=== PATIENT | female | born 1960 | race Caucasian/White ===

== ENCOUNTER 2018-08-20 19:46 | Emergency (ER) | payer SELFPAY ==
--- NOTE | 2018-08-20 22:30 | ER Document Report ---
ED Medical Screen (RME) - General Chief Complaint: Leg Pain Stated Complaint: THIGH PAIN Time Seen by Provider: 08/20/18 22:19 Primary Care Provider: BLANCA STYLES PA-C [Primary Care Provider] - Follow up as needed Notes: 58-year-old female with 2 complaints. Main complaint is 2 separate episodes where she became diaphoretic, dizzy, and almost passed out. She denies chest pain, shortness of breath, nausea or vomiting. She states that 1 of the episodes happened right after she had sharp pain in her left leg/hip area. She has been getting this recently, it is specifically over the front of the left thigh and after a very sharp pain she will feel numbness over the area temporarily. Lower extremity is normal. No swelling. No history of blood clot. Treated with metformin and Synthroid. TRAVEL OUTSIDE OF THE [place] IN LAST 30 DAYS: No - Related Data Allergies/Adverse Reactions: No Known Allergies Allergy (Verified 03/16/14 16:45) Past Medical History - Past Medical History Cardiac Medical History: Denies: Hx Coronary Artery Disease, Hx Heart Attack, Hx Hypertension Pulmonary Medical History: Reports: Hx Pneumonia - "walking" at age 25 Denies: Hx Asthma, Hx Bronchitis, Hx COPD Neurological Medical History: Denies: Hx Cerebrovascular Accident, Hx Seizures Musculoskeltal Medical History: Reports Hx Arthritis - Knees, hips Past Surgical History: Reports: Hx Section - Immunizations Hx Diphtheria, Pertussis, Tetanus Vaccination: Yes Physical Exam - Cardiovascular Rhythm: Regular. No: Tachycardia Heart sounds: Normal auscultation, S1 appreciated, S2 appreciated Doctor's Discharge - Discharge Referrals: BLANCA STYLES PA-C [Primary Care Provider] - Follow up as needed
[2018-08-20 22:50] LABS: ABSOLUTE BASOPHILS # (AUTO) 0.1 10^3/uL (0.0-0.2); ABSOLUTE EOSINOPHILS # (AUTO) 0.1 10^3/uL (0.0-0.6); ABSOLUTE LYMPHOCYTES (AUTO) 2.4 10^3/uL (0.5-4.7); ABSOLUTE MONOCYTES (AUTO) 0.5 10^3/uL (0.1-1.4); ABSOLUTE NEUT (AUTO) 8.9 10^3/uL (1.7-8.2); BASOPHILS % (AUTO) 0.8 % (0-2); EOSINOPHILS % (AUTO) 0.5 % (0-6); HEMATOCRIT 45.5 % (36.0-47.0); HEMOGLOBIN 15.7 g/dL (12.0-15.5); LYMPHOCYTES % (AUTO) 20.3 % (13-45); MEAN CORPUSCULAR HEMOGLOBIN 31.1 pg (27.0-33.4); MEAN CORPUSCULAR HGB CONC 34.5 g/dL (32.0-36.0); MEAN CORPUSCULAR VOLUME 90 fl (80-97); MONOCYTES % (AUTO) 4.6 % (3-13); PLATELET COUNT 277 10^3/uL (150-450); RED BLOOD COUNT 5.04 10^6/uL (3.72-5.28); RED CELL DISTRIBUTION WIDTH 13.9 % (11.5-14.0); SEGMENTED NEUTROPHILS % (AUTO) 73.8 % (42-78); TOTAL CELLS COUNTED % (AUTO) 100 %
[2018-08-20 22:57] LABS: APPEARANCE,URINE CLOUDY; BILIRUBIN,URINE SMALL (NEGATIVE); GLUCOSE, URINE NEGATIVE (NEGATIVE); KETONES,URINE TRACE mg/dL (NEGATIVE); LEUKOCYTE ESTERASE,URINE NEGATIVE (NEGATIVE); NITRITE,URINE NEGATIVE (NEGATIVE); PROTEIN,URINE 30 mg/dL (NEGATIVE); URINE SPECIFIC GRAVITY 1.024
[2018-08-20 22:58] LABS: COLOR,URINE DARK YELLOW
--- NOTE | 2018-08-20 23:01 | RADIOLOGY REPORT (SQ) ---
EXAM DESCRIPTION: XR CHEST 1 VIEW COMPLETED DATE/TME: 08/20/2018 22:27 CLINICAL HISTORY: 58 years, Female, dizziness, near syncope COMPARISON: 05/10/2014 chest NUMBER OF VIEWS: 1 TECHNIQUE: Portable chest LIMITATIONS: None. FINDINGS: Heart size is normal. Osteopenia. Lungs are clear. No pneumothorax IMPRESSION: No acute cardiopulmonary process copyright 2010 [employer]- All Rights Reserved
--- NOTE | 2018-08-20 23:02 | RADIOLOGY REPORT (SQ) ---
EXAM DESCRIPTION: XR HIP 2 OR MORE VIEWS COMPLETED DATE/TME: 08/20/2018 22:27 CLINICAL HISTORY: 58 years, Female, sharp pain COMPARISON: None. NUMBER OF VIEWS: 3 TECHNIQUE: AP pelvis and two-view left hip LIMITATIONS: None. FINDINGS: Osteopenia. Negative for acute fracture or dislocation. Mild degenerative change of the hips bilaterally. Soft tissues are unremarkable IMPRESSION: Osteopenia with mild degenerative change copyright 2010 [employer]- All Rights Reserved
[2018-08-20 23:10] LABS: ANION GAP 12 (5-19); BLOOD UREA NITROGEN 23 mg/dL (7-20); CARBON DIOXIDE 29 mmol/L (22-30); CHLORIDE 102 mmol/L (98-107); CREATINE KINASE 378 U/L (30-135); GLUCOSE 122 mg/dL (75-110); POTASSIUM 4.4 mmol/L (3.6-5.0); SODIUM 143.4 mmol/L (137-145)
--- NOTE | 2018-08-21 02:37 | ER Document Report ---
ED General - General Chief Complaint: Leg Pain Stated Complaint: THIGH PAIN Time Seen by Provider: 08/20/18 22:19 Primary Care Provider: BLANCA STYLES PA-C [Primary Care Provider] - 08/23/18 Notes: Patient is a 58-year-old female who presents with complaint of 2 separate episodes of sudden onset of a sharp pain in her lateral thigh that then shot down her leg numbness associated with it as well. Both episodes lasted 1-2 minutes. She says when she gets these episodes she then becomes diaphoretic feels lightheaded. She does not have chest pain. She does not pass out. She says that she is also noticed that she is just having pain in her thigh when she walks. She says that she is only had the 2 episodes of the severe. That again originates in the lateral thigh. No edema to the leg. No history of PE DVT. No redness or swelling to the leg. She says she has gained 30 pounds due to being off her thyroid medication was recently placed back on her thyroid medication which she says has helped. She denies any pain in her back. No fevers. No associated weakness. No other complaints at this time. TRAVEL OUTSIDE OF THE [place] IN LAST 30 DAYS: No - Related Data Allergies/Adverse Reactions: No Known Allergies Allergy (Verified 08/20/18 22:37) Past Medical History - Social History Smoking Status: Never Smoker Frequency of alcohol use: None Drug Abuse: None Family History: Reviewed & Not Pertinent Patient has suicidal ideation: No Patient has homicidal ideation: No - Past Medical History Cardiac Medical History: Denies: Hx Coronary Artery Disease, Hx Heart Attack, Hx Hypertension Pulmonary Medical History: Reports: Hx Pneumonia - "walking" at age 25 Denies: Hx Asthma, Hx Bronchitis, Hx COPD Neurological Medical History: Denies: Hx Cerebrovascular Accident, Hx Seizures Renal/ Medical History: Denies: Hx Peritoneal Dialysis Musculoskeletal Medical History: Reports Hx Arthritis - Knees, hips Past Surgical History: Reports: Hx Section - Immunizations Hx Diphtheria, Pertussis, Tetanus Vaccination: Yes Review of Systems - Review of Systems Notes: My Normal Review Basic REVIEW OF SYSTEMS: CONSTITUTIONAL : Denies fever, chills, or sweats. Denies recent illness. RESPIRATORY: Denies cough, cold, or chest congestion. Denies shortness of breath, difficulty breathing, or wheezing. GASTROINTESTINAL: Denies abdominal pain. Denies nausea, vomiting, or diarrhea. Denies constipation. Last BM: MUSCULOSKELETAL: Intermittent severe pain in left lateral thigh. SKIN: Denies rash or skin lesions. HEMATOLOGIC : Denies easy bruising or bleeding. LYMPHATIC: Denies swollen, enlarged glands. NEUROLOGICAL: Denies altered mental status or loss of consciousness. Denies headache. Denies weakness or paralysis or loss of use of either side. Denies problems with gait or speech. Denies sensory or motor loss. ALL OTHER SYSTEMS REVIEWED AND NEGATIVE. Physical Exam - Vital signs Vitals: Temp Pulse Resp BP Pulse Ox 98.6 F 88 14 102/68 96 08/20/18 20:02 08/20/18 20:02 08/20/18 20:02 08/20/18 20:02 08/20/18 20:02 - Notes Notes: General Appearance: Well nourished, alert, cooperative, no acute distress, no obvious discomfort. Well-appearing. Vitals: reviewed, See vital signs table. Head: no swelling or tenderness to the head Eyes: PERRL, EOMI, Conjuctiva clear Lungs: No wheezing, No rales, No rhonci, No accessory muscle use, good air exchange bilaterally. Heart: Normal rate, Regular rythm, No murmur, no rub Abdomen: Normal BS, soft, No rigidity, No abdominal tenderness, No guarding, no rebound, no abdominal masses, no organomegaly Extremities: strength 5/5 in all extremities, good pulses in all extremities, no swelling or tenderness in the extremities, no edema. Skin: warm, dry, appropriate color, no rash Neuro: speech clear, oriented x 3, normal affect, responds appropriately to questions. Cranial nerves II through XII are intact. Distal sensation intact. Patient moves all extremities without difficulty. Course - Re-evaluation Re-evalutation: 08/21/18 07:09 Exact cause of the patient's 2 episodes is not 100% clear. It sounds consistent with this if she is having a pinched nerve and that she has a specific area in her legs that suddenly becomes very painful with pain that radiates down the leg and then some associated numbness in the leg and that last 1-2 minutes. She does admit that she has some recurrent pain with walking or moving. I do not suspect a DVT and that the pain is on the lateral aspect of her leg and is pinpoint when it first initiates. She has no edema or swelling in the leg to cause concern for DVT either. She denies any chest pain during these episodes. She does become dizzy but has not passed out. Suspect the dizziness is related to the sudden onset of severe pain. Has no significant redness or swelling or signs of infection on exam of the thigh. She has good distal pulses in all extremity. She does mention that sometimes she will take hydrochlorothiazide because she has chronic edema in her right leg that sometimes recurs. Informed her not to take this as this can affect her blood pressure as her blood pressure already runs low. Patient to return to ER if she has fevers, vomiting, recurrent pain, or feels unwell. I encouraged her to follow-up closely with a primary care doctor for reevaluation and to discuss possible nerve conduction studies or further workup. Dictation of this chart was performed using voice recognition software; therefore, there may be some unintended grammatical errors. - Vital Signs Vital signs: Temp Pulse Resp BP Pulse Ox 97.6 F 72 16 94/66 L 93 08/21/18 03:15 08/21/18 03:15 08/21/18 03:15 08/21/18 03:15 08/21/18 03:15 - Laboratory Result Diagrams: 08/20/18 22:30 08/20/18 22:30 Laboratory results interpreted by me: 08/20/18 08/20/18 08/20/18 22:30 22:30 22:30 WBC 12.0 H Hgb 15.7 H Absolute Neutrophils 8.9 H BUN 23 H Creatinine 1.32 H Est GFR ( Amer) 50 L Est GFR (Non-Af Amer) 41 L Glucose 122 H Creatine Kinase 378 H Urine Protein 30 H Urine Ketones TRACE H Urine Bilirubin SMALL H Urine Urobilinogen 4.0 H Urine Ascorbic Acid 40 H - EKG Interpretation by Me Additional EKG results interpreted by me: 08/21/18 02:51 EKG is reviewed and interpreted by me. EKG shows sinus rhythm with a rate of [address] segment elevation or depression. No ischemic T wave inversions. NV interval, QRS duration, QT intervals are within normal range. Old EKG for comparison is from May 10, 2014. Discharge - Discharge Clinical Impression: Near syncope Leg pain Qualifiers: Laterality: left Qualified Code(s): M79.605 - Pain in left leg Condition: Good Disposition: HOME, SELF-CARE Additional Instructions: The exact cause of your leg pain is on 100% clear. I suspect that he may be having a pinched nerve in your leg based on the sudden onset of sharp pain with numbness. Please talk to your physician about potentially having a nerve conduction study performed on her leg. Please cut back on the ibuprofen. Please only take 400 mg every 6 hours. Continued use of ibuprofen at 800 mg can start to affect your kidney function. Please follow-up with your doctor this week. Please return to the ER if you have episode of passing out, any chest pain, any difficulty breathing, or worsening leg pain. Forms: Return to Work Referrals: BLANCA STYLES PA-C [Primary Care Provider] - 08/23/18
[2018-08-21 03:17] VITALS: BP 94/66
--- NOTE | 2018-08-21 20:06 | EKG REPORT ---
SEVERITY:- NORMAL ECG - SINUS RHYTHM : Confirmed by: Anant Marcelo 21-Aug-2018 20:05:32
== END 2018-08-21 03:22 | disposition home or self-care (01) ==
LOC: ER 19:46
DX: M79.652 Pain in left thigh (principal); R20.0 Anesthesia of skin; R42 Dizziness and giddiness; R61 Generalized hyperhidrosis
CPT/HCPCS: 36415; 71045; 80048; 81001; 82550; 84484; 85025; 93005; 93010; 99284